=== PATIENT | female | born 1980 | race Caucasian/White ===

== ENCOUNTER → 2016-05-06 | Outpatient (CLI) | payer BC ==
[~2016-05-06] MED LIST: PRENTAB26 PO
[2016-05-06 14:43] LABS: URINE APPEARANCE CLEAR (CLEAR); URINE BILIRUBIN NEG (NEG); URINE COLOR YELLOW; URINE NITRITE NEG (NEG); URINE PH 6.5 (4.5-7.5); URINE SPECIFIC GRAVITY 1.002 (1.000-1.030); UROBILINOGEN NEG (NEG)
[2016-05-06 14:48] LABS: MANUAL MICROSCOPIC REQUIRED? NO; REVIEW REQ? NO
== END | disposition home or self-care (01) ==
LOC: C.LABSPEC 12:59
PROVIDERS: ATTEND Obstetrics & Gynecology
DX: O09.521 Supervision of elderly multigravida, first trimester (principal)

== ENCOUNTER → 2016-06-25 | Outpatient (CLI) | payer BC ==
[2016-06-28 20:36] LABS: PARVOVIRUS IgG INDEX 7.5 (<0.9); PARVOVIRUS IgM INDEX 0.2 (<0.9)
== END | disposition home or self-care (01) ==
LOC: C.LAB1850 16:25
PROVIDERS: ATTEND Obstetrics & Gynecology
DX: Z20.828 Contact with and (suspected) exposure to other viral communicable diseases (principal)

== ENCOUNTER → 2016-07-03 | Outpatient (CLI) | payer BC ==
[2016-07-03 18:19] LABS: GTGD 50 Grams
[2016-07-07 12:36] LABS: AFP MULTIPLE OF MEDIAN 0.85; AFPTS GESTATIONAL AGE 16.1 WEEKS; AFPTS INSULIN DEP DIABETIC? NO; AFPTS MATERNAL WT 137 LBS; ALPHA-FETOPROTEIN RACE CAUCASIAN=W; ESTRIOL MULTIPLE OF MEDIAN 0.85; HISTORY OF NTD NO; INHIBIN A 102 PG/ML; INHIBIN A MOM 0.57; REPEAT SAMPLE? NO; hCG MULTIPLE OF MEDIAN 0.73
== END | disposition home or self-care (01) ==
LOC: C.LAB1850 16:00
PROVIDERS: ATTEND Obstetrics & Gynecology
DX: O09.522 Supervision of elderly multigravida, second trimester (principal)